=== PATIENT | female | born 1965 | race African-American/Black ===

== ENCOUNTER 2023-03-07 23:03 | Inpatient (IN) | payer OTHER ==
[2023-03-07 23:34] VITALS: BMI 36.1
[2023-03-08] MEDS ORDERED: NALOXONE HCL 0.4 MG/ML VIAL IM PRN (00:02)
[2023-03-08] MEDS ORDERED: BENZOCAINE/MENTHOL (CHLORASEPTIC ) LOZENGE MM PRN (00:02)
[2023-03-08] MEDS ORDERED: LOPERAMIDE HCL 2 MG CAPSULE PO PRN (00:02)
[2023-03-08] MEDS ORDERED: guaiFENesin 600 MG TABLET.ER (FP) PO PRN (00:02)
[2023-03-08] MEDS ORDERED: MAGNESIUM HYDROX 2400MG/30ML ORAL SUSPENSION 30 ML CUP PO PRN (00:02)
[2023-03-08] MEDS ORDERED: MAG HYDROX/AL HYDROX/SIMETH 30 ML UNIT-DOSE CUP PO PRN (00:02)
[2023-03-08] MEDS ORDERED: POLYETHYLENE GLYCOL (HEALTHYLAX) 3350 17 GM PACKET PO PRN (00:02)
[2023-03-08] MEDS ORDERED: BENZONATATE 200 MG CAPSULE PO PRN (00:02)
[2023-03-08] MEDS ORDERED: NALOXONE HCL (KLOXXADO) 8 MG SPRAY NS PRN (00:02)
[2023-03-08] MEDS ORDERED: hydrOXYzine PAMOATE 25 MG CAPSULE (FP) PO PRN (02:53)
[2023-03-08] MEDS: ACETAMINOPHEN 325 MG TABLET (FP) PO PRN (02:57)
[2023-03-08] MEDS ORDERED: LAMOTRIGINE 250 MG PO SCH (10:00)
[2023-03-08] MEDS: PANTOPRAZOLE 20 MG TABLET PO SCH (10:36)
[2023-03-08] MEDS: HYDROCHLOROTHIAZIDE 25 MG TABLET (FP) PO SCH (10:36)
[2023-03-08] MEDS: NICOTINE 14 MG/24 HOURS TOPICAL PATCH TD SCH (10:36)
[2023-03-08] MEDS: PRENATAL VITAMINS W/ FOLIC ACID TABLET (FP) PO SCH (10:36)
[2023-03-08] MEDS: IBUPROFEN 600 MG TABLET (FP) PO PRN ×2 (10:37→21:16)
[2023-03-08 12:00] LABS: PH,URINE 5.5 (5.0-8.0); URINE APPEARANCE CLEAR; URINE BILIRUBIN NEGATIVE (NEGATIVE); URINE COLOR YELLOW; URINE GLUCOSE (UA) NEGATIVE (NEGATIVE); URINE KETONE NEGATIVE (NEGATIVE); URINE LEUK ESTERASE NEGATIVE (NEGATIVE); URINE NITRITE NEGATIVE (NEGATIVE); URINE PROTEIN NEGATIVE (NEGATIVE); URINE UROBILINOGEN 0.2 mg/dL (0.2-1.0)
[2023-03-08] MEDS ORDERED: TUBERCULIN PPD 5 TU/0.1ML SYRINGE (IN PATIENT USE ONLY) ID ONE (12:00)
[2023-03-08] MEDS: PARoxetine HCL 20 MG TABLET PO SCH (12:54)
[2023-03-08] MEDS: LAMOTRIGINE 100 MG, LAMOTRIGINE 25 MG PO SCH ×3 (16:02→21:13)
[2023-03-08] MEDS: QUEtiapine FUMARATE 100 MG TABLET (FP) PO SCH (21:13)
[2023-03-08] MEDS: MELATONIN 5 MG TABLETS PO SCH (21:13)
[2023-03-08] MEDS: THIAMINE HCL 100 MG TABLET (FP) PO SCH (21:13)
[2023-03-08] MEDS ORDERED: lamoTRIgine 100 MG TABLET PO SCH (22:00)
[2023-03-09] MEDS: COLLOIDAL OATMEAL 1 BAR EACH TP PRN (03:01)
[2023-03-09] MEDS: PRENATAL VITAMINS W/ FOLIC ACID TABLET (FP) PO SCH (10:31)
[2023-03-09] MEDS: PARoxetine HCL 20 MG TABLET PO SCH (10:32)
[2023-03-09] MEDS: LAMOTRIGINE 100 MG, LAMOTRIGINE 25 MG PO SCH ×2 (10:32→21:05)
[2023-03-09] MEDS: PANTOPRAZOLE 20 MG TABLET PO SCH (10:32)
[2023-03-09] MEDS: HYDROCHLOROTHIAZIDE 25 MG TABLET (FP) PO SCH (10:32)
[2023-03-09] MEDS: NICOTINE 14 MG/24 HOURS TOPICAL PATCH TD SCH (10:32)
[2023-03-09] MEDS ORDERED: BISACODYL 5 MG TABLET.DR (FP) PO PRN (11:05)
[2023-03-09] MEDS: OXYBUTYNIN CHLORIDE 5 MG TABLET PO SCH (11:47)
[2023-03-09] MEDS: IBUPROFEN 600 MG TABLET (FP) PO PRN ×2 (11:49→22:33)
[2023-03-09 11:53] LABS: POTASSIUM 4.2 mmol/L (3.5-5.1)
[2023-03-09 11:57] LABS: ALBUMIN 3.4 g/dl (3.4-5.0); BLOOD UREA NITROGEN 16.5 mg/dL (7-18); CALCIUM 9.1 mg/dL (8.5-10.1)
[2023-03-09 12:00] LABS: HEMOGLOBIN 12.1 GM/dL (10.7-15.3); MCH 31.3 pg (25.7-33.7); MCHC 32.7 g/dl (32.0-36.0); MEAN CELL VOLUME 95.8 fl (80-96); MEAN PLT VOLUME 9.4 fl (7.5-11.1); PLATELET COUNT 251 10^3/uL (134-434); RBC 3.86 M/mm3 (3.60-5.2); RDW 14.3 % (11.6-15.6); WHITE BLOOD COUNT 4.9 K/mm3 (4.0-10.0)
[2023-03-09 12:02] LABS: BILIRUBIN,TOTAL 0.8 mg/dL (0.2-1); TOT PROT 6.6 g/dl (6.4-8.2)
[2023-03-09 12:20] LABS: SYPHILIS W/ RPR CONF NON-REACTIVE (NONREACTIVE)
[2023-03-09] MEDS: MELATONIN 5 MG TABLETS PO SCH (21:05)
[2023-03-09] MEDS: THIAMINE HCL 100 MG TABLET (FP) PO SCH (21:05)
[2023-03-09] MEDS: QUEtiapine FUMARATE 100 MG TABLET (FP) PO SCH (21:05)
[2023-03-10] MEDS: PARoxetine HCL 20 MG TABLET PO SCH (10:15)
[2023-03-10] MEDS: PRENATAL VITAMINS W/ FOLIC ACID TABLET (FP) PO SCH (10:15)
[2023-03-10] MEDS: NICOTINE 14 MG/24 HOURS TOPICAL PATCH TD SCH (10:16)
[2023-03-10] MEDS: OXYBUTYNIN CHLORIDE 5 MG TABLET PO SCH (10:16)
[2023-03-10] MEDS: PANTOPRAZOLE 20 MG TABLET PO SCH (10:16)
[2023-03-10] MEDS: HYDROCHLOROTHIAZIDE 25 MG TABLET (FP) PO SCH (10:16)
[2023-03-10] MEDS: LAMOTRIGINE 100 MG, LAMOTRIGINE 25 MG PO SCH ×2 (10:16→21:42)
[2023-03-10] MEDS: IBUPROFEN 400 MG TABLET (FP) PO PRN (18:21)
[2023-03-10] MEDS: THIAMINE HCL 100 MG TABLET (FP) PO SCH (21:42)
[2023-03-10] MEDS: QUEtiapine FUMARATE 100 MG TABLET (FP) PO SCH (21:42)
[2023-03-10] MEDS: MELATONIN 5 MG TABLETS PO SCH (21:43)
[2023-03-11] MEDS: LAMOTRIGINE 100 MG, LAMOTRIGINE 25 MG PO SCH ×2 (10:14→21:30)
[2023-03-11] MEDS: PARoxetine HCL 20 MG TABLET PO SCH (10:14)
[2023-03-11] MEDS: PANTOPRAZOLE 20 MG TABLET PO SCH (10:15)
[2023-03-11] MEDS: HYDROCHLOROTHIAZIDE 25 MG TABLET (FP) PO SCH (10:15)
[2023-03-11] MEDS: OXYBUTYNIN CHLORIDE 5 MG TABLET PO SCH ×3 (10:15→21:31)
[2023-03-11] MEDS: NICOTINE 14 MG/24 HOURS TOPICAL PATCH TD SCH (10:15)
[2023-03-11] MEDS: PRENATAL VITAMINS W/ FOLIC ACID TABLET (FP) PO SCH (10:15)
[2023-03-11] MEDS: IBUPROFEN 600 MG TABLET (FP) PO PRN (10:19)
[2023-03-11] MEDS: NICOTINE POLACRILEX 2 MG GUM BUC PRN (19:25)
[2023-03-11] MEDS: THIAMINE HCL 100 MG TABLET (FP) PO SCH (21:30)
[2023-03-11] MEDS: QUEtiapine FUMARATE 100 MG TABLET (FP) PO SCH (21:30)
[2023-03-11] MEDS: MELATONIN 5 MG TABLETS PO SCH (21:30)
[2023-03-11] MEDS: IBUPROFEN 400 MG TABLET (FP) PO PRN (21:40)
[2023-03-12] MEDS: PANTOPRAZOLE 20 MG TABLET PO SCH (10:45)
[2023-03-12] MEDS: PARoxetine HCL 20 MG TABLET PO SCH (10:45)
[2023-03-12] MEDS: HYDROCHLOROTHIAZIDE 25 MG TABLET (FP) PO SCH (10:45)
[2023-03-12] MEDS: OXYBUTYNIN CHLORIDE 5 MG TABLET PO SCH ×2 (10:45→21:23)
[2023-03-12] MEDS: NICOTINE 14 MG/24 HOURS TOPICAL PATCH TD SCH (10:45)
[2023-03-12] MEDS: LAMOTRIGINE 100 MG, LAMOTRIGINE 25 MG PO SCH ×2 (10:45→21:23)
[2023-03-12] MEDS: PRENATAL VITAMINS W/ FOLIC ACID TABLET (FP) PO SCH (10:45)
[2023-03-12] MEDS: IBUPROFEN 600 MG TABLET (FP) PO PRN ×2 (10:46→21:23)
[2023-03-12] MEDS: MELATONIN 5 MG TABLETS PO SCH (21:23)
[2023-03-12] MEDS: THIAMINE HCL 100 MG TABLET (FP) PO SCH (21:23)
[2023-03-12] MEDS: QUEtiapine FUMARATE 100 MG TABLET (FP) PO SCH (21:23)
[2023-03-13] MEDS: PARoxetine HCL 20 MG TABLET PO SCH (09:50)
[2023-03-13] MEDS: OXYBUTYNIN CHLORIDE 5 MG TABLET PO SCH ×2 (09:50→21:34)
[2023-03-13] MEDS: HYDROCHLOROTHIAZIDE 25 MG TABLET (FP) PO SCH (09:50)
[2023-03-13] MEDS: LAMOTRIGINE 100 MG, LAMOTRIGINE 25 MG PO SCH ×2 (09:50→21:34)
[2023-03-13] MEDS: PANTOPRAZOLE 20 MG TABLET PO SCH (09:50)
[2023-03-13] MEDS: PRENATAL VITAMINS W/ FOLIC ACID TABLET (FP) PO SCH (09:50)
[2023-03-13] MEDS: IBUPROFEN 600 MG TABLET (FP) PO PRN ×2 (09:51→18:18)
[2023-03-13] MEDS: NICOTINE 14 MG/24 HOURS TOPICAL PATCH TD SCH (10:23)
[2023-03-13] MEDS: QUEtiapine FUMARATE 100 MG TABLET (FP) PO SCH (21:34)
[2023-03-13] MEDS: THIAMINE HCL 100 MG TABLET (FP) PO SCH (21:34)
[2023-03-13] MEDS: MELATONIN 5 MG TABLETS PO SCH (21:35)
[2023-03-14] MEDS: LAMOTRIGINE 100 MG, LAMOTRIGINE 25 MG PO SCH ×2 (09:49→21:18)
[2023-03-14] MEDS: HYDROCHLOROTHIAZIDE 25 MG TABLET (FP) PO SCH (09:49)
[2023-03-14] MEDS: PRENATAL VITAMINS W/ FOLIC ACID TABLET (FP) PO SCH (09:49)
[2023-03-14] MEDS: PARoxetine HCL 20 MG TABLET PO SCH (09:49)
[2023-03-14] MEDS: IBUPROFEN 600 MG TABLET (FP) PO PRN ×3 (09:49→21:19)
[2023-03-14] MEDS: PANTOPRAZOLE 20 MG TABLET PO SCH (09:49)
[2023-03-14] MEDS: OXYBUTYNIN CHLORIDE 5 MG TABLET PO SCH ×2 (09:50→21:19)
[2023-03-14] MEDS: NICOTINE 14 MG/24 HOURS TOPICAL PATCH TD SCH (09:51)
[2023-03-14] MEDS: MELATONIN 5 MG TABLETS PO SCH (21:19)
[2023-03-14] MEDS: QUEtiapine FUMARATE 100 MG TABLET (FP) PO SCH (21:19)
[2023-03-14] MEDS: THIAMINE HCL 100 MG TABLET (FP) PO SCH (21:19)
[2023-03-15] MEDS: PANTOPRAZOLE 20 MG TABLET PO SCH (09:32)
[2023-03-15] MEDS: NICOTINE 14 MG/24 HOURS TOPICAL PATCH TD SCH (09:32)
[2023-03-15] MEDS: HYDROCHLOROTHIAZIDE 25 MG TABLET (FP) PO SCH (09:32)
[2023-03-15] MEDS: PRENATAL VITAMINS W/ FOLIC ACID TABLET (FP) PO SCH (09:32)
[2023-03-15] MEDS: LAMOTRIGINE 100 MG, LAMOTRIGINE 25 MG PO SCH ×2 (09:32→21:27)
[2023-03-15] MEDS: PARoxetine HCL 20 MG TABLET PO SCH (09:32)
[2023-03-15] MEDS: OXYBUTYNIN CHLORIDE 5 MG TABLET PO SCH ×2 (09:32→21:27)
[2023-03-15] MEDS: IBUPROFEN 600 MG TABLET (FP) PO PRN ×2 (09:51→21:27)
[2023-03-15] MEDS: THIAMINE HCL 100 MG TABLET (FP) PO SCH (21:27)
[2023-03-15] MEDS: QUEtiapine FUMARATE 100 MG TABLET (FP) PO SCH (21:27)
[2023-03-15] MEDS: MELATONIN 5 MG TABLETS PO SCH (21:27)
[2023-03-16] MEDS: OXYBUTYNIN CHLORIDE 5 MG TABLET PO SCH ×2 (09:40→21:15)
[2023-03-16] MEDS: NICOTINE 14 MG/24 HOURS TOPICAL PATCH TD SCH (09:41)
[2023-03-16] MEDS: PARoxetine HCL 20 MG TABLET PO SCH (09:41)
[2023-03-16] MEDS: PRENATAL VITAMINS W/ FOLIC ACID TABLET (FP) PO SCH (09:41)
[2023-03-16] MEDS: LAMOTRIGINE 100 MG, LAMOTRIGINE 25 MG PO SCH ×2 (09:41→21:15)
[2023-03-16] MEDS: HYDROCHLOROTHIAZIDE 25 MG TABLET (FP) PO SCH (09:41)
[2023-03-16] MEDS: PANTOPRAZOLE 20 MG TABLET PO SCH (09:41)
[2023-03-16] MEDS: IBUPROFEN 600 MG TABLET (FP) PO PRN ×2 (09:42→17:57)
[2023-03-16] MEDS: THIAMINE HCL 100 MG TABLET (FP) PO SCH (21:15)
[2023-03-16] MEDS: MELATONIN 5 MG TABLETS PO SCH (21:15)
[2023-03-16] MEDS: QUEtiapine FUMARATE 100 MG TABLET (FP) PO SCH (21:15)
[2023-03-17] MEDS: OXYBUTYNIN CHLORIDE 5 MG TABLET PO SCH ×2 (10:40→22:06)
[2023-03-17] MEDS: PANTOPRAZOLE 20 MG TABLET PO SCH (10:40)
[2023-03-17] MEDS: LAMOTRIGINE 100 MG, LAMOTRIGINE 25 MG PO SCH ×2 (10:40→22:06)
[2023-03-17] MEDS: PRENATAL VITAMINS W/ FOLIC ACID TABLET (FP) PO SCH (10:40)
[2023-03-17] MEDS: PARoxetine HCL 20 MG TABLET PO SCH (10:40)
[2023-03-17] MEDS: NICOTINE 14 MG/24 HOURS TOPICAL PATCH TD SCH (10:40)
[2023-03-17] MEDS: HYDROCHLOROTHIAZIDE 25 MG TABLET (FP) PO SCH (10:40)
[2023-03-17] MEDS: IBUPROFEN 600 MG TABLET (FP) PO PRN (17:30)
[2023-03-17] MEDS: THIAMINE HCL 100 MG TABLET (FP) PO SCH (22:06)
[2023-03-17] MEDS: QUEtiapine FUMARATE 100 MG TABLET (FP) PO SCH (22:06)
[2023-03-17] MEDS: MELATONIN 5 MG TABLETS PO SCH (22:07)
[2023-03-17] MEDS: ACETAMINOPHEN 325 MG TABLET (FP) PO PRN (22:09)
[2023-03-18] MEDS: PRENATAL VITAMINS W/ FOLIC ACID TABLET (FP) PO SCH (10:01)
[2023-03-18] MEDS: PARoxetine HCL 20 MG TABLET PO SCH (10:01)
[2023-03-18] MEDS: LAMOTRIGINE 100 MG, LAMOTRIGINE 25 MG PO SCH ×2 (10:01→21:39)
[2023-03-18] MEDS: PANTOPRAZOLE 20 MG TABLET PO SCH (10:02)
[2023-03-18] MEDS: OXYBUTYNIN CHLORIDE 5 MG TABLET PO SCH ×2 (10:02→21:39)
[2023-03-18] MEDS: NICOTINE 14 MG/24 HOURS TOPICAL PATCH TD SCH (10:02)
[2023-03-18] MEDS: HYDROCHLOROTHIAZIDE 25 MG TABLET (FP) PO SCH (10:03)
[2023-03-18] MEDS: IBUPROFEN 600 MG TABLET (FP) PO PRN ×2 (14:32→21:41)
[2023-03-18] MEDS: THIAMINE HCL 100 MG TABLET (FP) PO SCH (21:39)
[2023-03-18] MEDS: QUEtiapine FUMARATE 100 MG TABLET (FP) PO SCH (21:39)
[2023-03-18] MEDS: MELATONIN 5 MG TABLETS PO SCH (21:39)
[2023-03-19] MEDS: PARoxetine HCL 20 MG TABLET PO SCH (09:39)
[2023-03-19] MEDS: PANTOPRAZOLE 20 MG TABLET PO SCH (09:39)
[2023-03-19] MEDS: LAMOTRIGINE 100 MG, LAMOTRIGINE 25 MG PO SCH ×2 (09:39→21:34)
[2023-03-19] MEDS: NICOTINE 14 MG/24 HOURS TOPICAL PATCH TD SCH (09:40)
[2023-03-19] MEDS: HYDROCHLOROTHIAZIDE 25 MG TABLET (FP) PO SCH (09:40)
[2023-03-19] MEDS: PRENATAL VITAMINS W/ FOLIC ACID TABLET (FP) PO SCH (09:40)
[2023-03-19] MEDS: OXYBUTYNIN CHLORIDE 5 MG TABLET PO SCH ×2 (09:41→21:34)
[2023-03-19] MEDS: THIAMINE HCL 100 MG TABLET (FP) PO SCH (21:34)
[2023-03-19] MEDS: IBUPROFEN 600 MG TABLET (FP) PO PRN (21:34)
[2023-03-19] MEDS: QUEtiapine FUMARATE 100 MG TABLET (FP) PO SCH (21:34)
[2023-03-19] MEDS: MELATONIN 5 MG TABLETS PO SCH (21:35)
[2023-03-20] MEDS: HYDROCHLOROTHIAZIDE 25 MG TABLET (FP) PO SCH (09:54)
[2023-03-20] MEDS: LAMOTRIGINE 100 MG, LAMOTRIGINE 25 MG PO SCH ×2 (09:54→21:35)
[2023-03-20] MEDS: PARoxetine HCL 20 MG TABLET PO SCH (09:55)
[2023-03-20] MEDS: PANTOPRAZOLE 20 MG TABLET PO SCH (09:55)
[2023-03-20] MEDS: PRENATAL VITAMINS W/ FOLIC ACID TABLET (FP) PO SCH (09:55)
[2023-03-20] MEDS: OXYBUTYNIN CHLORIDE 5 MG TABLET PO SCH ×2 (09:55→21:36)
[2023-03-20] MEDS: NICOTINE 14 MG/24 HOURS TOPICAL PATCH TD SCH (09:57)
[2023-03-20] MEDS: IBUPROFEN 600 MG TABLET (FP) PO PRN (11:48)
[2023-03-20] MEDS: MELATONIN 5 MG TABLETS PO SCH (21:35)
[2023-03-20] MEDS: THIAMINE HCL 100 MG TABLET (FP) PO SCH (21:36)
[2023-03-20] MEDS: QUEtiapine FUMARATE 100 MG TABLET (FP) PO SCH (21:36)
[2023-03-20] MEDS: IBUPROFEN 400 MG TABLET (FP) PO PRN (21:37)
[2023-03-21] MEDS: OXYBUTYNIN CHLORIDE 5 MG TABLET PO SCH ×2 (09:36→21:49)
[2023-03-21] MEDS: PARoxetine HCL 20 MG TABLET PO SCH (09:36)
[2023-03-21] MEDS: NICOTINE 14 MG/24 HOURS TOPICAL PATCH TD SCH (09:37)
[2023-03-21] MEDS: LAMOTRIGINE 100 MG, LAMOTRIGINE 25 MG PO SCH ×2 (09:37→21:50)
[2023-03-21] MEDS: PRENATAL VITAMINS W/ FOLIC ACID TABLET (FP) PO SCH (09:37)
[2023-03-21] MEDS: PANTOPRAZOLE 20 MG TABLET PO SCH (09:37)
[2023-03-21] MEDS: IBUPROFEN 600 MG TABLET (FP) PO PRN ×2 (09:39→21:51)
[2023-03-21] MEDS: HYDROCHLOROTHIAZIDE 25 MG TABLET (FP) PO SCH (09:40)
[2023-03-21] MEDS: MELATONIN 5 MG TABLETS PO SCH (21:49)
[2023-03-21] MEDS: THIAMINE HCL 100 MG TABLET (FP) PO SCH (21:49)
[2023-03-21] MEDS: QUEtiapine FUMARATE 100 MG TABLET (FP) PO SCH (21:50)
[2023-03-22] MEDS: PRENATAL VITAMINS W/ FOLIC ACID TABLET (FP) PO SCH (09:37)
[2023-03-22] MEDS: HYDROCHLOROTHIAZIDE 25 MG TABLET (FP) PO SCH (09:37)
[2023-03-22] MEDS: IBUPROFEN 600 MG TABLET (FP) PO PRN ×2 (09:37→21:34)
[2023-03-22] MEDS: PARoxetine HCL 20 MG TABLET PO SCH (09:37)
[2023-03-22] MEDS: OXYBUTYNIN CHLORIDE 5 MG TABLET PO SCH ×2 (09:37→21:38)
[2023-03-22] MEDS: PANTOPRAZOLE 20 MG TABLET PO SCH (09:37)
[2023-03-22] MEDS: LAMOTRIGINE 100 MG, LAMOTRIGINE 25 MG PO SCH ×2 (09:37→21:33)
[2023-03-22] MEDS: NICOTINE 14 MG/24 HOURS TOPICAL PATCH TD SCH (09:39)
[2023-03-22] MEDS: QUEtiapine FUMARATE 100 MG TABLET (FP) PO SCH (21:33)
[2023-03-22] MEDS: MELATONIN 5 MG TABLETS PO SCH (21:33)
[2023-03-22] MEDS: THIAMINE HCL 100 MG TABLET (FP) PO SCH (21:36)
[2023-03-23] MEDS: NICOTINE 14 MG/24 HOURS TOPICAL PATCH TD SCH (09:50)
[2023-03-23] MEDS: IBUPROFEN 600 MG TABLET (FP) PO PRN ×2 (09:51→21:35)
[2023-03-23] MEDS: PARoxetine HCL 20 MG TABLET PO SCH (09:52)
[2023-03-23] MEDS: LAMOTRIGINE 100 MG, LAMOTRIGINE 25 MG PO SCH ×2 (09:53→21:31)
[2023-03-23] MEDS: PRENATAL VITAMINS W/ FOLIC ACID TABLET (FP) PO SCH (09:53)
[2023-03-23] MEDS: OXYBUTYNIN CHLORIDE 5 MG TABLET PO SCH ×2 (09:53→21:35)
[2023-03-23] MEDS: HYDROCHLOROTHIAZIDE 25 MG TABLET (FP) PO SCH (09:53)
[2023-03-23] MEDS: PANTOPRAZOLE 20 MG TABLET PO SCH (09:53)
[2023-03-23] MEDS: MELATONIN 5 MG TABLETS PO SCH (21:31)
[2023-03-23] MEDS: THIAMINE HCL 100 MG TABLET (FP) PO SCH (21:31)
[2023-03-23] MEDS: QUEtiapine FUMARATE 100 MG TABLET (FP) PO SCH (21:32)
[2023-03-24] MEDS: PRENATAL VITAMINS W/ FOLIC ACID TABLET (FP) PO SCH (09:51)
[2023-03-24] MEDS: HYDROCHLOROTHIAZIDE 25 MG TABLET (FP) PO SCH (09:51)
[2023-03-24] MEDS: PARoxetine HCL 20 MG TABLET PO SCH (09:51)
[2023-03-24] MEDS: LAMOTRIGINE 100 MG, LAMOTRIGINE 25 MG PO SCH ×2 (09:51→21:32)
[2023-03-24] MEDS: NICOTINE 14 MG/24 HOURS TOPICAL PATCH TD SCH (09:52)
[2023-03-24] MEDS: PANTOPRAZOLE 20 MG TABLET PO SCH (09:52)
[2023-03-24] MEDS: OXYBUTYNIN CHLORIDE 5 MG TABLET PO SCH ×2 (09:55→21:32)
[2023-03-24] MEDS: IBUPROFEN 600 MG TABLET (FP) PO PRN ×2 (09:55→21:34)
[2023-03-24] MEDS: NICOTINE POLACRILEX 2 MG GUM BUC PRN (14:45)
[2023-03-24] MEDS: QUEtiapine FUMARATE 100 MG TABLET (FP) PO SCH (21:32)
[2023-03-24] MEDS: THIAMINE HCL 100 MG TABLET (FP) PO SCH (21:33)
[2023-03-24] MEDS: MELATONIN 5 MG TABLETS PO SCH (21:33)
[2023-03-25] MEDS: PANTOPRAZOLE 20 MG TABLET PO SCH (09:51)
[2023-03-25] MEDS: PRENATAL VITAMINS W/ FOLIC ACID TABLET (FP) PO SCH (09:51)
[2023-03-25] MEDS: HYDROCHLOROTHIAZIDE 25 MG TABLET (FP) PO SCH (09:51)
[2023-03-25] MEDS: OXYBUTYNIN CHLORIDE 5 MG TABLET PO SCH ×2 (09:51→21:28)
[2023-03-25] MEDS: LAMOTRIGINE 100 MG, LAMOTRIGINE 25 MG PO SCH ×2 (09:52→21:28)
[2023-03-25] MEDS: PARoxetine HCL 20 MG TABLET PO SCH (09:52)
[2023-03-25] MEDS: NICOTINE 14 MG/24 HOURS TOPICAL PATCH TD SCH (09:52)
[2023-03-25] MEDS: IBUPROFEN 600 MG TABLET (FP) PO PRN ×2 (09:53→21:29)
[2023-03-25] MEDS: THIAMINE HCL 100 MG TABLET (FP) PO SCH (21:28)
[2023-03-25] MEDS: QUEtiapine FUMARATE 100 MG TABLET (FP) PO SCH (21:29)
[2023-03-25] MEDS: MELATONIN 5 MG TABLETS PO SCH (21:29)
[2023-03-26] MEDS: LAMOTRIGINE 100 MG, LAMOTRIGINE 25 MG PO SCH ×2 (10:19→21:39)
[2023-03-26] MEDS: PANTOPRAZOLE 20 MG TABLET PO SCH (10:19)
[2023-03-26] MEDS: PARoxetine HCL 20 MG TABLET PO SCH (10:19)
[2023-03-26] MEDS: PRENATAL VITAMINS W/ FOLIC ACID TABLET (FP) PO SCH (10:20)
[2023-03-26] MEDS: IBUPROFEN 600 MG TABLET (FP) PO PRN ×2 (10:20→21:38)
[2023-03-26] MEDS: NICOTINE 14 MG/24 HOURS TOPICAL PATCH TD SCH (10:20)
[2023-03-26] MEDS: HYDROCHLOROTHIAZIDE 25 MG TABLET (FP) PO SCH (10:20)
[2023-03-26] MEDS: OXYBUTYNIN CHLORIDE 5 MG TABLET PO SCH ×2 (10:20→21:39)
[2023-03-26] MEDS: COLLOIDAL OATMEAL 1 BAR EACH TP PRN (20:32)
[2023-03-26] MEDS: QUEtiapine FUMARATE 100 MG TABLET (FP) PO SCH (21:38)
[2023-03-26] MEDS: THIAMINE HCL 100 MG TABLET (FP) PO SCH (21:38)
[2023-03-26] MEDS: MELATONIN 5 MG TABLETS PO SCH (21:39)
[2023-03-27] MEDS: PANTOPRAZOLE 20 MG TABLET PO SCH (09:49)
[2023-03-27] MEDS: PRENATAL VITAMINS W/ FOLIC ACID TABLET (FP) PO SCH (09:49)
[2023-03-27] MEDS: LAMOTRIGINE 100 MG, LAMOTRIGINE 25 MG PO SCH ×2 (09:49→21:23)
[2023-03-27] MEDS: IBUPROFEN 600 MG TABLET (FP) PO PRN ×2 (09:49→21:24)
[2023-03-27] MEDS: PARoxetine HCL 20 MG TABLET PO SCH (09:49)
[2023-03-27] MEDS: OXYBUTYNIN CHLORIDE 5 MG TABLET PO SCH ×2 (09:49→21:24)
[2023-03-27] MEDS: HYDROCHLOROTHIAZIDE 25 MG TABLET (FP) PO SCH (09:49)
[2023-03-27] MEDS: NICOTINE 14 MG/24 HOURS TOPICAL PATCH TD SCH (09:51)
[2023-03-27] MEDS: QUEtiapine FUMARATE 100 MG TABLET (FP) PO SCH (21:23)
[2023-03-27] MEDS: MELATONIN 5 MG TABLETS PO SCH (21:23)
[2023-03-27] MEDS: THIAMINE HCL 100 MG TABLET (FP) PO SCH (21:23)
[2023-03-28] MEDS: PRENATAL VITAMINS W/ FOLIC ACID TABLET (FP) PO SCH (09:43)
[2023-03-28] MEDS: LAMOTRIGINE 100 MG, LAMOTRIGINE 25 MG PO SCH ×2 (09:44→21:39)
[2023-03-28] MEDS: IBUPROFEN 400 MG TABLET (FP) PO PRN (09:44)
[2023-03-28] MEDS: PANTOPRAZOLE 20 MG TABLET PO SCH (09:44)
[2023-03-28] MEDS: PARoxetine HCL 20 MG TABLET PO SCH (09:44)
[2023-03-28] MEDS: HYDROCHLOROTHIAZIDE 25 MG TABLET (FP) PO SCH (09:44)
[2023-03-28] MEDS: OXYBUTYNIN CHLORIDE 5 MG TABLET PO SCH ×2 (09:47→21:40)
[2023-03-28] MEDS: NICOTINE 14 MG/24 HOURS TOPICAL PATCH TD SCH (09:48)
[2023-03-28] MEDS: IBUPROFEN 600 MG TABLET (FP) PO PRN (21:39)
[2023-03-28] MEDS: THIAMINE HCL 100 MG TABLET (FP) PO SCH (21:40)
[2023-03-28] MEDS: MELATONIN 5 MG TABLETS PO SCH (21:40)
[2023-03-28] MEDS: QUEtiapine FUMARATE 100 MG TABLET (FP) PO SCH (21:40)
[2023-03-29 07:25] VITALS: RESP 16; TEMP 97.1
[2023-03-29] MEDS: PRENATAL VITAMINS W/ FOLIC ACID TABLET (FP) PO SCH (09:16)
[2023-03-29] MEDS: LAMOTRIGINE 100 MG, LAMOTRIGINE 25 MG PO SCH (09:17)
[2023-03-29] MEDS: NICOTINE 14 MG/24 HOURS TOPICAL PATCH TD SCH (09:17)
[2023-03-29] MEDS: PARoxetine HCL 20 MG TABLET PO SCH (09:17)
[2023-03-29] MEDS: HYDROCHLOROTHIAZIDE 25 MG TABLET (FP) PO SCH (09:17)
[2023-03-29] MEDS: OXYBUTYNIN CHLORIDE 5 MG TABLET PO SCH (09:17)
[2023-03-29] MEDS: PANTOPRAZOLE 20 MG TABLET PO SCH (09:18)
[2023-03-29 10:59] VITALS: BP 106/54; PULSE 72
== END 2023-03-29 09:35 | disposition home or self-care (01) | DRG 895 ==
LOC: YASAS 23:03 → Y5N 03-08 02:08
PROVIDERS: ADMIT Allergy & Immunology; ATTEND Psychiatry & Neurology Pain Medicine
PROC: HZ42ZZZ Group Counseling for Substance Abuse Treatment, Cognitive-Behavioral (ICD-10-PCS; principal; 2023-03-08)
DX: F14.20 Cocaine dependence, uncomplicated (principal); F17.210 Nicotine dependence, cigarettes, uncomplicated; G40.909 Epilepsy, unspecified, not intractable, without status epilepticus; I10 Essential (primary) hypertension; S62.102D Fracture of unspecified carpal bone, left wrist, subsequent encounter for fracture with routine healing; W10.8XXD Fall (on) (from) other stairs and steps, subsequent encounter; Z86.59 Personal history of other mental and behavioral disorders; Z87.448 Personal history of other diseases of urinary system
CPT/HCPCS: 36415; 80053; 80175; 80307; 81003; 81025; 82962; 85027; 86780; 86803; 87635; 87811; 93005; 93010

== ENCOUNTER 2023-03-17 11:00 | Emergency (ER) | payer OTHER ==
[2023-03-17 11:13] VITALS: BMI 35.4
[2023-03-17 12:18] LABS: HEMATOCRIT 36.8 % (32.4-45.2); HEMOGLOBIN 12.4 GM/dL (10.7-15.3); MCH 31.8 pg (25.7-33.7); MCHC 33.7 g/dl (32.0-36.0); MEAN CELL VOLUME 94.3 fl (80-96); PLATELET COUNT 237 10^3/uL (134-434); RDW 14.6 % (11.6-15.6); WHITE BLOOD COUNT 5.7 K/mm3 (4.0-10.0)
[2023-03-17 12:55] LABS: PH,URINE 7.5 (5.0-8.0); URINE APPEARANCE CLOUDY; URINE BILIRUBIN NEGATIVE (NEGATIVE); URINE COLOR YELLOW; URINE GLUCOSE (UA) NEGATIVE (NEGATIVE); URINE KETONE NEGATIVE (NEGATIVE); URINE LEUK ESTERASE NEGATIVE (NEGATIVE); URINE NITRITE NEGATIVE (NEGATIVE); URINE PROTEIN NEGATIVE (NEGATIVE); URINE UROBILINOGEN 0.2 mg/dL (0.2-1.0)
[2023-03-17 12:58] LABS: ALBUMIN 3.4 g/dl (3.4-5.0); BILIRUBIN,TOTAL 0.3 mg/dL (0.2-1); BLOOD UREA NITROGEN 21.8 mg/dL (7-18); CREATININE 0.8 mg/dL (0.55-1.3); POTASSIUM 4.7 mmol/L (3.5-5.1); TOT PROT 6.9 g/dl (6.4-8.2)
[2023-03-17 14:14] VITALS: BP 133/76; PULSE 72; RESP 19; TEMP 98.6
== END 2023-03-17 14:35 | disposition home or self-care (01) ==
LOC: JER 11:00
DX: R56.9 Unspecified convulsions (principal)
CPT/HCPCS: 36415; 70450-TC; 71045-TC-FY; 73110-TC-LT-FY; 80053; 81003; 85027; 87086; 93005; 93010; 99285-25